=== PATIENT | male | born 1975 | race Two or more races ===

== ENCOUNTER 2024-11-04 09:01 | Emergency (ER) | payer MEDICAID, SELFPAY ==
[2024-11-04 09:25] VITALS: BP 155/109; BP 156/108; PULSE 85; RESP 16; TEMP 36.7; O2SAT 99; BMI 35.7
--- NOTE | 2024-11-04 09:44 | XR_ITS ---
Examination: Fingers, right hand second digit 3 views Technique: AP, oblique, lateral views right hand second digit 3 views. Exam date and time: November 04, 2024 0952 hrs. Indications: Laceration to the hand today with second digit pain Findings: No acute fracture No dislocation No opaque foreign body Impression: No opaque foreign body
--- NOTE | 2024-11-04 10:15 | PD.EDWOUND ---
ED Wound/Laceration-RME/HPI General Chief Complaint: Wound/Laceration Stated Complaint: RIGHT INDEX FINGER LACERATION Time Seen by Provider: 11/04/24 09:22 Source: patient and family Arrival date/time: 11/04/24 09:01 49-year-old male presents to the emergency department with complaints of a laceration to distal third digit of right hand. Patient reports he was washing dishes last night and glass broke causing a small laceration to the tip of his right middle finger. Patient reports he has been bleeding since yesterday and that is why he prompted his ED visit today. Mode of arrival: ambulatory Related Data Home Medications ?Medication ?Instructions ?Recorded ?Confirmed amlodipine 10 mg tablet 10 mg PO QDAY 05/15/18 05/15/18 aspirin 81 mg tablet,delayed 81 mg PO QDAY 05/15/18 05/15/18 release lisinopril 40 mg tablet 40 mg PO QDAY 05/15/18 05/15/18 hydrochlorothiazide 25 mg tablet 25 mg PO QDAY 10/30/18 sitagliptin phosphate 50 mg tablet 50 mg PO QDAY 04/19/19 ([facility]) Previous Rx's ?Medication ?Instructions ?Recorded azelastine 205.5 mcg (0.15 %) 2 spray intranasal BID #30 mL 04/19/19 nasal spray meloxicam 15 mg tablet 15 mg PO QDAY #30 tabs 04/21/19 ondansetron 4 mg disintegrating 4 mg PO Q8H PRN nausea and 06/18/20 tablet vomiting #30 tabs clindamycin HCl 300 mg capsule 300 mg PO QID #40 caps 09/22/22 acetaminophen 500 mg tablet 500 mg PO Q6H PRN fever or pain 02/09/23 #30 tabs benzonatate 150 mg capsule 150 mg PO BID PRN cough #20 caps 02/09/23 hydrochlorothiazide 25 mg tablet 25 mg PO QDAY #30 tabs 04/14/24 ibuprofen 800 mg tablet 800 mg PO TID PRN pain #30 tabs 04/14/24 lisinopril 40 mg tablet 40 mg PO QDAY #30 tabs 04/14/24 sitagliptin 50 mg tablet 50 mg PO QDAY #30 tabs 04/14/24 Allergies Allergy/AdvReac Type Severity Reaction Status Date / Time No Known Allergies Allergy Verified 11/04/24 09:02 Review of Systems Review of Systems Systems Reviewed: All systems reviewed, normal except as documented Narrative Review of Systems: Gen: No fever, no chills, no weight loss EYES: No discharge, no visual changes, no pain HEENT: No ear pain, no congestion, no sore throat PULM: No shortness of breath, no cough, no congestion CV: No chest pain, no dyspnea on exertion, no palpitations GI: No nausea, no vomiting, no diarrhea, no pain, no constipation : No frequency, no urgency, no dysuria Musc/skel: No joint pain, no back pain Skin: +lac Psyc: No hallucinations, no depression Heme/Lymph: No easy bleeding or bruising tendencies Neuro: No weakness, no headache ED Exam Narrative Physical exam: General: Sittiing in Exam table in no acute distress, answering questions appropriately HENT: normocephalic, atraumatic, EOMI, PERRLA, moist mucous membranes Chest: chest wall is nontender Cardiac: regular rate and rhythm, normal S1 and S2, no murmurs, rubs, or gallops, capillary refill ?2 seconds Pulmonary: clear to auscultation bilaterally, no wheezing, crackles, or rhonchi Abdominal: active bowel sounds, soft, nontender, nondistended Neuro: A&OX3, CN II-XII intact, sensation grossly intact bilaterally in UE and LE. Skin: no rashes, no ecchymosis Ext:+ Right distal phalanx small half centimeter laceration superficial. Course Quality Measures none Orders Category Date Time Status XR finger RT min 2V Stat Exams 11/04/24 09:44 Completed Vital Signs Vital signs: Vital Signs Temperature 98.0 F 11/04/24 09:25 Pulse Rate 85 11/04/24 09:25 Respiratory Rate 16 11/04/24 09:25 Blood Pressure 156/108 H 11/04/24 09:25 Pulse Oximetry (%) 99 11/04/24 09:25 Oxygen Delivery Method Room Air 11/04/24 09:25 Wound / Laceration MDM Narrative MDM Narrative:: Using sterile technique, patients wound cleansed, no anesthesia used. 0.5cm superficial wound clease with 150ml of normal saline, alllowed to dry, then used 3 steri strips with Dermabond for complete closure of wound. Patient tolerated procedure well. Patient data External records reviewed:: [facility] previous records Clinical information provided by:: patient Social determinants that could affect healthcare access:: none Patient has the following chronic illnesses:: Diabetes How is presenting disease/condition affected by chronic disease/condition?: uneffected by Evaluation data The following diagnostics were reviewed and interpreted by me:: radiology exam(s) Lab and/or radiology exams considered but not ordered:: No Interpretation Summary: No fractures on x-ray. Or foreign body Examination: Fingers, right hand second digit 3 views Technique: AP, oblique, lateral views right hand second digit 3 views. Exam date and time: November 04, 2024 0952 hrs. Indications: Laceration to the hand today with second digit pain Findings: No acute fracture No dislocation No opaque foreign body Impression: No opaque foreign body Medications / Prescriptions Medications or Prescriptions considered but not ordered:: No Medication administrations:: no Consultations Consultation(s) initiated? (list below): No Diagnosis Wound Differential Diagnosis: laceration, abscess, abrasion and avulsion of skin Most likely diagnosis given after review of the tests above:: laceration, skin glued Admission Indicated Admission indicated?: not indicated Admission Request Was there a request for admission?: No Disposition Plan Disposition Plan: Discharge Discharge Attestation Discharge Attestation: The patient and all family members were given an opportunity to ask questions and understood the discharge instructions. Discharge instructions specifically effects, indications for sooner follow up or return to the emergency department, and the expected course of current diagnosis. Patient condition: Stable Discharge Plan Plan Patient Disposition: HOME (Self Care) Patient condition on transfer: Stable Prescriptions/Referrals Prescriptions/Med Rec: No Action hydrochlorothiazide 25 mg tablet 25 mg PO QDAY Januvia 50 mg tablet 50 mg PO QDAY azelastine 0.15 % (205.5 mcg) spray,non-aerosol 2 spray INTRANASAL BID Qty: 30 0RF Rx Instructions: administer into each nostril meloxicam 15 mg tablet 15 mg PO QDAY Qty: 30 0RF aspirin 81 mg Tablet,Delayed Release (Dr/Ec) 81 mg PO QDAY lisinopril 40 mg Tablet 40 mg PO QDAY amlodipine 10 mg tablet 10 mg PO QDAY ondansetron 4 mg tablet,disintegrating 4 mg PO Q8H PRN (Reason: nausea and vomiting) Qty: 30 0RF clindamycin HCl 300 mg capsule 300 mg PO QID Qty: 40 0RF benzonatate 150 mg capsule 150 mg PO BID PRN (Reason: cough) Qty: 20 0RF acetaminophen 500 mg tablet 500 mg PO Q6H PRN (Reason: fever or pain) Qty: 30 0RF lisinopril 40 mg tablet 40 mg PO QDAY Qty: 30 0RF hydrochlorothiazide 25 mg tablet 25 mg PO QDAY Qty: 30 0RF sitagliptin 50 mg tablet 50 mg PO QDAY Qty: 30 0RF ibuprofen 800 mg tablet 800 mg PO TID PRN (Reason: pain) Qty: 30 0RF Referrals: Horacio Harley MD [Primary Care Provider] - In 1 week Problem List Clinical Impression: Laceration Patient/Caregiver Discharge Instructions Additional Instructions: Keep area clean and dry. Do not peel or pick at the Steri-Strips they will fall on its own. Keep an eye if you see any redness, drainage please make sure you follow-up with your primary doctor for any signs of infection. You can return here if there is any worsening symptoms or change in condition. Print Language: Qatari Stand Alone Forms: [employer] Award Info., Patient Portal Info Letter PA/PROMOTIONS REPRESENTATIVE Supervising Physician PA/PROMOTIONS REPRESENTATIVE Supervising Physician: Dr Edwards
== END 2024-11-04 11:05 | disposition home or self-care (01) ==
PROVIDERS: Emergency Provider Emergency Medicine; PCP Family Medicine
DX: S61.210A Laceration without foreign body of right index finger without damage to nail, initial encounter (principal); E11.9 Type 2 diabetes mellitus without complications; W25.XXXA Contact with sharp glass, initial encounter; Y93.G1 Activity, food preparation and clean up
CPT/HCPCS: 12001; 73140; 99283

== ENCOUNTER 2025-06-26 14:48 | Emergency (ER) | payer SELFPAY ==
[2025-06-26] VITALS (8 sets, daily range): BP systolic 154–205; BP diastolic 102–143; PULSE 80–97; RESP 17–18; TEMP 36.7–37.2; O2SAT 95–100; BMI 38.8
--- NOTE | 2025-06-26 15:02 | XR_ITS ---
Examination: CTA chest, with intravenous contrast. CTA abdomen, with intravenous contrast. CTA pelvis, with intravenous contrast. 2-D sagittal and coronal reconstructions. 3-D reconstructions. Date and time of exam: June 26, 2025, 1700 hours INDICATIONS: Chest and abdominal pain radiating to the back beginning 2 days ago CTDI vol (mgy) 20.8 DLP (MGycm) 1210 Technique: Multiple CTA images, 2.0 mm slice thickness, obtained chest, abdomen, pelvis, with the high-resolution 64 slice scanner. 100 cc Isovue 370 is administered intravenously. Sagittal and coronal 2-D reconstructions are obtained. 3-D reconstructions, angiographic images are obtained. 3-D postprocessing, including vascular maximum intensity projections. Low dose protocols were performed. One or more of the following dose reduction techniques were used; automated exposure control, adjustment of the mA and/or KV according to patient size, use of iterative reconstruction technique. Findings: No thoracic aortic aneurysm dilatation or dissection No pulmonary artery filling defects No paratracheal or tracheobronchial or bronchopulmonary adenopathy. Minor atelectasis in the lingular segment No lobar pneumonia or pulmonary edema Liver mildly irregular in contour No gallstones Spleen is not enlarged No pancreatic or adrenal mass No renal or ureteral calculi No abdominal aortic aneurysmal dilatation or dissection No bowel obstruction Normal appendix No diverticulitis Normal seminal vesicles No prostatomegaly Urinary bladder intact Moderate osteopenia Diffuse mild to moderate thoracic and lumbar degenerative disc disease Moderate narrowing hip joints IMPRESSION: No thoracic or abdominal aortic aneurysmal dilatation or dissection Negative for pulmonary artery emboli No mediastinal lymphadenopathy No pneumonia, pulmonary edema, pleural disease or pulmonary nodules Normal appendix No renal or ureteral calculi No bowel obstruction
--- NOTE | 2025-06-26 15:10 | PD.EDRME ---
Rapid Medical Screening Exam RME Arrival date/time: 06/26/25 14:48 Chief Complaint: Back Pain/Injury Time Seen by Provider: 06/26/25 14:58 Vital signs: Vital Signs Temperature 99 F 06/26/25 14:57 Pulse Rate 84 06/26/25 14:57 Respiratory Rate 18 06/26/25 14:57 Blood Pressure 205/143 H 06/26/25 14:57 Pulse Oximetry (%) 97 06/26/25 14:57 Oxygen Delivery Method Room Air 06/26/25 14:57 E Narrative: 50-year-old male with past medical history of hypertension, diabetes who has been noncompliant with medication for years and was previously on lisinopril and amlodipine who presents to the ER complaining of back pain which he began to experience while waking up on Wednesday it radiates to his lower stomach on both sides associated with nausea.
--- NOTE | 2025-06-26 15:13 | EKG_ITS ---
[facility] Test Date: 2025-06-26 Pat Name: KIERSTEN CARRANZA Department: Room: - Gender: Male [employer]: : 1975 Requested By: Christian Bonds Order Number: [id number] Reading MD: Christian Bonds Measurements Intervals [place] Rate: 78 P: 26 GA: 151 QRS: -13 QRSD: 122 T: 72 QT: 388 QTc: 445 Interpretive Statements SINUS RHYTHM MODERATE INTRAVENTRICULAR CONDUCTION DELAY [110+ ms QRS DURATION] NONSPECIFIC ST & T-WAVE ABNORMALITY Compared to ECG 02/09/2023 07:51:21 T-wave abnormality now present /store/S0/[id number]/[id number].pdf
[2025-06-26] MEDS: ONDANSETRON INJ 2 MG/ML INJ 2 ML 4 MG IVP (15:47)
[2025-06-26] MEDS: HYDROmorphone INJ 2 MG/ML VIAL 1 MG IVP (15:49)
[2025-06-26] MEDS: hydrALAZINE INJ 20 MG/ML VIAL IVP (15:52)
[2025-06-26 16:01] LABS: Collection Type, Urine Voided
[2025-06-26 16:06] LABS: Bilirubin,Urine Negative (Negative); Blood,Urine Negative (Negative); Clarity,Urine Clear (Clear/Hazy); Color,Urine Lt-Yellow (Lt Yel-Yel); Culture Indicated,Urine Not Indicated; Glucose, Urine 1+ (Negative); Ketones,Urine Negative (Negative); Leukocyte Esterase,Urine Negative (Negative); Nitrite,Urine Negative (Negative); PH,Urine 6.0 (5.0-7.0); Protein,Urine Trace (Neg - Trace); RBC,Urine 1 /hpf (0-3); Specific Gravity,Urine 1.020 (1.001-1.035); Squamous Epithelial Cell,Urine < 1 /hpf (0-5); Urobilinogen,Urine Negative mg/dL (0.0-1.0); WBC,Urine < 1 /hpf (0-5)
[2025-06-26 16:24] LABS: Amphetamine/Methamp Scrn,U Negative (Negative); Barbiturate Screen,Urine Negative (Negative); Benzodiazepines Screen,Urine Negative (Negative); Benzoylecgonine Screen, Ur Negative (Negative); Fentanyl Screen,Urine Negative (Negative); Opiate Screen,Urine Negative (Negative); THC Screen,Urine Negative (Negative)
--- NOTE | 2025-06-26 16:25 | PD.EDBACK ---
ED Back Injury Pain RME/HPI General Chief Complaint: Back Pain/Injury Stated Complaint: LOWER BACK PAIN X 2 DAYS Time Seen by Provider: 06/26/25 14:58 Arrival date/time: 06/26/25 14:48 Limitations: no limitations RME / HPI RME / HPI Narrative: 50-year-old male with past medical history of hypertension, diabetes who has been noncompliant with medication for years and was previously on lisinopril and amlodipine who presents to the ER complaining of back pain which he began to experience while waking up on Wednesday it radiates to his lower stomach on both sides associated with nausea. DR. RESENDIZ MAIN ED EVALUATION 50 year old male with history of hypertension with medication noncompliance presents to the ED for evaluation of left lower back pain that radiates to the front of left lower abdomen and up to the left shoulder beginning 2 days ago Wednesday. Patient states he noticed the pain shortly after waking and had been laying in bed when it began. Denies any history of similar pain, recent injury or trauma. No other associated symptoms reported. Denies fevers, chills, chest pain, cough, shortness of breath, nausea, vomiting, diarrhea, constipation, or urinary symptoms. Related Data Home Medications ?Medication ?Instructions ?Recorded ?Confirmed amlodipine 10 mg tablet 10 mg PO QDAY 05/15/18 05/15/18 aspirin 81 mg tablet,delayed 81 mg PO QDAY 05/15/18 05/15/18 release lisinopril 40 mg tablet 40 mg PO QDAY 05/15/18 05/15/18 hydrochlorothiazide 25 mg tablet 25 mg PO QDAY 10/30/18 sitagliptin phosphate 50 mg tablet 50 mg PO QDAY 04/19/19 ([facility]) Previous Rx's ?Medication ?Instructions ?Recorded azelastine 205.5 mcg (0.15 %) 2 spray intranasal BID #30 mL 04/19/19 nasal spray meloxicam 15 mg tablet 15 mg PO QDAY #30 tabs 04/21/19 ondansetron 4 mg disintegrating 4 mg PO Q8H PRN nausea and 06/18/20 tablet vomiting #30 tabs clindamycin HCl 300 mg capsule 300 mg PO QID #40 caps 09/22/22 acetaminophen 500 mg tablet 500 mg PO Q6H PRN fever or pain 05/30/23 #30 tabs benzonatate 150 mg capsule 150 mg PO BID PRN cough #20 caps 02/09/23 hydrochlorothiazide 25 mg tablet 25 mg PO QDAY #30 tabs 04/14/24 ibuprofen 800 mg tablet 800 mg PO TID PRN pain #30 tabs 04/14/24 lisinopril 40 mg tablet 40 mg PO QDAY #30 tabs 04/14/24 sitagliptin 50 mg tablet 50 mg PO QDAY #30 tabs 04/14/24 Allergies Allergy/AdvReac Type Severity Reaction Status Date / Time No Known Allergies Allergy Verified 06/26/25 14:51 Review of Systems Review of Systems Systems Reviewed: All systems reviewed, normal except as documented Past Medical History Past Medical History CARDIAC: Positive Hypertension ENDOCRINE: Positive Endocrine Disorders and Diabetes Mellitus Type 2 Social History SMOKING STATUS: Never smoker ED Exam General Limitations: Present no limitations General appearance: Present alert and in no apparent distress Head Head exam: Present atraumatic, normocephalic and normal inspection Eye Eye exam: Present normal appearance, PERRL and EOMI ENT ENT exam: Present normal exam, normal oropharynx and mucous membranes moist Neck Neck exam: Present normal inspection, full ROM and trachea midline Chest Chest inspection: Present normal inspection and symmetric chest wall rise Respiratory Respiratory exam: Present normal lung sounds bilaterally Cardiovascular Cardiovascular exam: Present regular rate, normal rhythm and normal heart sounds Abdominal Exam Abdominal exam: Present soft and normal bowel sounds Extremities Exam Extremities exam: Present normal inspection and full ROM Back Exam Back exam: Present normal inspection and full ROM; Absent tenderness, CVA tenderness (R), CVA tenderness (L), paraspinal tenderness or vertebral tenderness Neurological Exam Neurological exam: Present alert, oriented X3 and CN II-XII intact Psychiatric Psychiatric exam: Present normal affect and normal mood Skin Skin exam: Present warm, dry, intact and normal color Course Quality Measures none Orders Category Date Time Status CT Screening NOW Care 06/26/25 15:03 Active [employer] Developer Q4H START 00 Care 06/26/25 15:13 Active EKG (ED ONLY) *Do not use* NOW Care 06/26/25 15:[address] angio chest abdomen pelvis Stat Exams 06/26/25 15:02 Completed EKG (ED Only) Stat Exams 06/26/25 15:13 Draft CBC Stat Lab 06/26/25 15:30 Completed CMP [Comprehensive Metabolic Panel] Stat Lab 06/26/25 15:30 Completed Drug Screen,Urine Stat Lab 06/26/25 13:50 Completed Lipase Stat Lab 06/26/25 15:30 Completed Troponin I Stat Lab 06/26/25 15:30 Completed UA, C/S IF [Urinalysis, C/S if Indicated] Stat Lab 06/26/25 13:50 Completed HYDROmorphone INJ [Dilaudid Inj] Med 06/26/25 17:53 Discontinued 0.5 mg IVP X1 ONE HYDROmorphone INJ [Dilaudid Inj] Med 06/26/25 15:03 Discontinued 1 mg IVP X1 ONE Ondansetron Inj [Zofran Inj] Med 06/26/25 15:03 Discontinued 4 mg IVP X1 ONE hydrALAZINE INJ [Apresoline Inj] Med 06/26/25 15:29 Discontinued 20 mg IVP X1 ONE Vital Signs Vital signs: Vital Signs Temperature 99 F 06/26/25 14:57 Pulse Rate 84 06/26/25 14:57 Respiratory Rate 18 06/26/25 14:57 Blood Pressure 205/143 H 06/26/25 14:57 Pulse Oximetry (%) 97 06/26/25 14:57 Oxygen Delivery Method Room Air 06/26/25 14:57 Pulse ox is 97% on room air which is adequate. Back Pain / Injury MDM Narrative MDM Narrative:: Sandi Ross am scribing for and in the presence of Dr. Resendiz. 50-year-old male with history of hypertension, cocaine abuse, diabetes, noncompliant with his blood pressure medications over the last 6 months because he cannot afford them coming into the emergency department with left leg pain, blood pressure 205/143 and abdominal pain with radiation to his left chest. On arrival to the emergency department the patient is not diaphoretic. He does have a blood pressure of 205/143 with a pulse of 84 and equal pulses distally. The patient is immediate placed into room. EKG is obtained which do not show ST elevation ID or ischemia. The patient was treated with Dilaudid and IV is placed and CT scan is ordered for dissection versus ID, electrolyte abnormality, other ACS, urine for dysuria, renal stone, and CT angio ordered for possible AAA. Care transferred to Dr. Acharya (emergency physician). Past medical, surgical, social and family history reviewed. Vitals and home medications reviewed. Results and treatment plan discussed. They will assume the care of the patient at this time and will follow the patient, pending CT angio, initial troponin and repeat troponin. Reassessment of the blood pressure. final disposition. [facility] Narrative:: Sandi Ross am scribing for and in the presence of Dr. Resendiz. 1800p: Patient signed out to Dr. Acharya, pending CTA report and delta trop. 06/26/25 5:54 pm CARLOS - Sandi Arambula Patient data External records reviewed:: [facility] previous records Clinical information provided by:: patient Social determinants that could affect healthcare access:: none Patient has the following chronic illnesses:: HTN with medication noncompliance, states he has not taken his medications for several months due to not having insurance How is presenting disease/condition affected by chronic disease/condition?: exacerbated by Evaluation data The following diagnostics were reviewed and interpreted by me:: lab results and EKG tracing(s) ( EKG @ 1537p. NSR, HR 78, nonspecific ST-T wave changes, no STEMI, ID interval 151ms, QTc 422ms. ) Lab and/or radiology exams considered but not ordered:: None Interpretation Summary: As noted above Medications / Prescriptions Medications or Prescriptions considered but not ordered:: None Medication administrations:: Medication Administration History Discontinued Medications Hydralazine HCl (Hydralazine Inj 20 Mg/Ml Vial) 20 mg IVP X1 ONE Stop: 06/26/25 15:30 Last Admin: 06/26/25 15:52 Dose: 20 mg Documented By: FC Hydromorphone HCl (Hydromorphone Inj 2 Mg/Ml Vial) 1 mg IVP X1 ONE Stop: 06/26/25 15:04 Last Admin: 06/26/25 15:49 Dose: 1 mg Documented By: FC Hydromorphone HCl (Hydromorphone Inj 2 Mg/Ml Vial) 0.5 mg IVP X1 ONE Stop: 06/26/25 17:54 Last Admin: 06/26/25 18:01 Dose: 0.5 mg Documented By: DB Ondansetron HCl (Ondansetron Inj 2 Mg/Ml Inj 2 Ml) 4 mg IVP X1 ONE; Protocol Stop: 06/26/25 15:04 Last Admin: 06/26/25 15:47 Dose: 4 mg Documented By: YU See above Consultations Consultation(s) initiated? (list below): No Diagnosis Most likely diagnosis given after review of the tests above:: Lower back pain Admission Indicated Admission indicated?: not indicated Explain why admission is indicated or not indicated:: Patient signed out pending final disposition. Admission Request Was there a request for admission?: No Disposition Plan Disposition Plan: other (specify) (signed out to Dr. Acharya) Discharge Plan Plan Health Concerns: Stable at discharge Prescriptions/Referrals Prescriptions/Med Rec: No Action hydrochlorothiazide 25 mg tablet 25 mg PO QDAY Januvia 50 mg tablet 50 mg PO QDAY azelastine 0.15 % (205.5 mcg) spray,non-aerosol 2 spray INTRANASAL BID Qty: 30 0RF Rx Instructions: administer into each nostril meloxicam 15 mg tablet 15 mg PO QDAY Qty: 30 0RF aspirin 81 mg Tablet,Delayed Release (Dr/Ec) 81 mg PO QDAY lisinopril 40 mg Tablet 40 mg PO QDAY amlodipine 10 mg tablet 10 mg PO QDAY ondansetron 4 mg tablet,disintegrating 4 mg PO Q8H PRN (Reason: nausea and vomiting) Qty: 30 0RF clindamycin HCl 300 mg capsule 300 mg PO QID Qty: 40 0RF benzonatate 150 mg capsule 150 mg PO BID PRN (Reason: cough) Qty: 20 0RF acetaminophen 500 mg tablet 500 mg PO Q6H PRN (Reason: fever or pain) Qty: 30 0RF lisinopril 40 mg tablet 40 mg PO QDAY Qty: 30 0RF hydrochlorothiazide 25 mg tablet 25 mg PO QDAY Qty: 30 0RF sitagliptin 50 mg tablet 50 mg PO QDAY Qty: 30 0RF ibuprofen 800 mg tablet 800 mg PO TID PRN (Reason: pain) Qty: 30 0RF Referrals: Horacio Harley MD [Primary Care Provider, Family Practice] - In 1 week Problem List Clinical Impression: History of medication noncompliance, Acute abdominal pain Patient/Caregiver Discharge Instructions Print Language: Burundian
[2025-06-26 16:26] LABS: Basophils # (Auto) 0.1 Thou/mm3 (0.0-0.2); Basophils % (Auto) 1 % (0-2.5); Eosinophils # (Auto) 0.3 Thou/mm3 (0.0-0.5); Eosinophils % (Auto) 3 % (0-10); Hematocrit 43.6 % (41.0-53.0); Hemoglobin 15.0 g/dL (13.5-16.0); Immature Granulocytes Auto 0.05 Thou/mm3 (0.00-0.00); Lymphocytes # (Auto) 3.1 Thou/mm3 (1.0-4.8); Lymphocytes % (Auto) 31 % (10-50); Mean Corpuscular HGB Conc 34.4 g/dl (31.0-37.0); Mean Corpuscular Hemoglobin 28.2 pg (25.0-35.0); Mean Corpuscular Volume 82 fL (80-100); Monocytes # (Auto) 0.9 Thou/mm3 (0.0-0.8); Monocytes % (Auto) 9 % (0-12); Neutrophils # (Auto) 5.7 Thou/mm3 (1.8-7.7); Neutrophils % (Auto) 56 % (37-80); Nucleated Red Blood Cell # 0.00 Thou/mm3 (0.00-0.00); Nucleated Red Blood Cell % 0 /100 WBC (0); Platelet Count 269 Thou/mm3 (140-440); RDW Standard Deviation 39.1 fL (35.1-43.9); Red Blood Count 5.32 Miln/mm3 (4.50-5.90); White Blood Count 10.2 Thou/mm3 (3.8-10.6)
[2025-06-26 16:39] LABS: Alanine Aminotransferase 14 U/L (10-49); Albumin, Serum 4.5 gm/dL (3.5-5.0); Albumin/Globulin Ratio 1.6 (1.2-2.2); Alkaline Phosphatase 82 U/L (46-116); Anion Gap 11 (7-16); Aspartate Amino Transferase 17 U/L (0-34); BUN/Creatinine Ratio 13 Ratio (12-20); Bilirubin,Total 0.8 mg/dL (0.3-1.2); Blood Urea Nitrogen 13 mg/dL (9-23); Calcium 9.1 mg/dL (8.3-10.6); Calcium (Corrected) 9.1 mg/dL (8.5-10.1); Carbon Dioxide 27.1 mMol/L (20.0-31.0); Chloride 102 mMol/L (98-107); Creatinine (Component) 1.0 mg/dL (0.6-1.3); Estimated Creatinine Clearance 111.4 mL/min (>60); Globulin 2.9 gm/dL (2.3-3.5); Glucose 152 mg/dL (74-106); Lipase 147 U/L (12-53); Osmolality,Calculated 282 (275-295); Potassium 3.9 mMol/L (3.4-5.1); Sodium 140 mMol/L (136-145); Total Protein 7.4 gm/dL (5.7-8.2); eGFR > 60 See Note
--- NOTE | 2025-06-26 17:23 | PC.NURSE ---
MADE DR HAMMONDS AWARE OF PATIENT CURRENT BP. NO NEW ORDERS RECEIVED.
[2025-06-26] MEDS: HYDROmorphone INJ 2 MG/ML VIAL 0.5 MG IVP (18:01)
[2025-06-26 18:25] LABS: Troponin I < 0.020 ng/mL (0.0-0.045)
--- NOTE | 2025-06-26 18:32 | EDNOTE_ITS ---
Emergency Room Addendum <Alethea Ring - Last Filed: 06/26/25 19:06> Addendum Narrative: 1800: Care assumed from Dr. Resendiz (emergency physician). Past medical, surgical, social and family history reviewed. Vitals and home medications reviewed. Results and treatment plan discussed. I will assume the care of the patient at this time and will follow the patient, pending CTA and d-Troponin I. The following addendum documentation note is intended to reflect any pending information, findings, or radiology results not included in the patient?s initial chart by the previous shift scribe. RADIOLOGY Chest/Abdomen/Pelvis CTA: Findings: No thoracic aortic aneurysm dilatation or dissection No pulmonary artery filling defects No paratracheal or tracheobronchial or bronchopulmonary adenopathy. Minor atelectasis in the lingular segment No lobar pneumonia or pulmonary edema Liver mildly irregular in contour No gallstones Spleen is not enlarged No pancreatic or adrenal mass No renal or ureteral calculi No abdominal aortic aneurysmal dilatation or dissection No bowel obstruction Normal appendix No diverticulitis Normal seminal vesicles No prostatomegaly Urinary bladder intact Moderate osteopenia Diffuse mild to moderate thoracic and lumbar degenerative disc disease Moderate narrowing hip joints IMPRESSION: No thoracic or abdominal aortic aneurysmal dilatation or dissection Negative for pulmonary artery emboli No mediastinal lymphadenopathy No pneumonia, pulmonary edema, pleural disease or pulmonary nodules Normal appendix No renal or ureteral calculi No bowel obstruction <Abdoulaye Acharya DO - Last Filed: 06/26/25 19:08> Addendum Narrative: 1800: Care assumed from Dr. Resendiz (emergency physician). Past medical, surgical, social and family history reviewed. Vitals and home medications reviewed. Results and treatment plan discussed. I will assume the care of the patient at this time and will follow the patient, pending CTA and d-Troponin I. The following addendum documentation note is intended to reflect any pending information, findings, or radiology results not included in the patient?s initial chart by the previous shift scribe. RADIOLOGY Chest/Abdomen/Pelvis CTA: Findings: No thoracic aortic aneurysm dilatation or dissection No pulmonary artery filling defects No paratracheal or tracheobronchial or bronchopulmonary adenopathy. Minor atelectasis in the lingular segment No lobar pneumonia or pulmonary edema Liver mildly irregular in contour No gallstones Spleen is not enlarged No pancreatic or adrenal mass No renal or ureteral calculi No abdominal aortic aneurysmal dilatation or dissection No bowel obstruction Normal appendix No diverticulitis Normal seminal vesicles No prostatomegaly Urinary bladder intact Moderate osteopenia Diffuse mild to moderate thoracic and lumbar degenerative disc disease Moderate narrowing hip joints IMPRESSION: No thoracic or abdominal aortic aneurysmal dilatation or dissection Negative for pulmonary artery emboli No mediastinal lymphadenopathy No pneumonia, pulmonary edema, pleural disease or pulmonary nodules Normal appendix No renal or ureteral calculi No bowel obstruction At 7 PM I went to reexamine the patient. He is alert and oriented and pain- free. CT scan of the chest abdomen and pelvis with IV contrast was unremarkable. Blood pressures down to 168/94. Patient normally is on 10 mg of amlodipine and 40 mg lisinopril which she has not been on for months. He needs to be restarted on his medications. I will send those medications into the pharmacy and he promises to take those medications as prescribed. He does have primary care follow-up. His troponin is not elevated. I did review all radiographic studies and lab work.
== END 2025-06-26 20:40 | disposition home or self-care (01) ==
PROVIDERS: Physician Assistant; Emergency Provider Emergency Medicine; PCP Family Medicine
DX: S39.92XA Unspecified injury of lower back, initial encounter (principal); E11.9 Type 2 diabetes mellitus without complications; I10 Essential (primary) hypertension; X50.9XXA Other and unspecified overexertion or strenuous movements or postures, initial encounter
CPT/HCPCS: 36415; 71275; 74174; 80053; 80307; 81001; 83690; 84484; 85025; 93005; 96374; 96375; 96376; 99283; A4649; J0360; J1171; J2405; Q9967